=== PATIENT | female | born 1995 | race Caucasian/White ===

== ENCOUNTER → 2024-05-14 07:50 | Outpatient (BNVA) | payer MEDICARE, SELFPAY | PROVIDERS: Visit Provider Nurse Practitioner Women's Health | DX: Z34.90 Encounter for supervision of normal pregnancy, unspecified, unspecified trimester (principal); Z3A.00 Weeks of gestation of pregnancy not specified | CPT/HCPCS: 80307; 81025; 84439; 84443; 84481; 85025; 86592; 86762; 86803; 86850; 86900; 87086; 87340; 87491; 87591; 87806 ==

== ENCOUNTER 2024-11-07 00:37 | Inpatient (IN) | payer MEDICARE, SELFPAY ==
[2024-11-06 23:51] VITALS: BP 123/57; PULSE 94
[2024-11-07] VITALS (30 sets, daily range): BP systolic 80–132; BP diastolic 45–68; PULSE 69–115; RESP 16; TEMP 36.6–37.3; O2SAT 97–98; BMI 26.5
[2024-11-07 02:38] LABS: Basophils # 0.1 10^3/uL (0.0-0.1); Basophils % 0.3 %; Eosinophils % 0.1 %; Hematocrit 33.8 % (36-47); Lymphocytes # 2.8 10^3/uL (0.8-4.8); Lymphocytes % 17.6 %; Mean Corpuscular HGB Conc 34.9 g/dL (30-55); Mean Corpuscular Hemoglobin 31.6 pg (27-33); Mean Corpuscular Volume 90.4 fl (85-98); Mean Platelet Volume 9.8 fL (7.4-10.4); Monocytes # 1.1 10^3/uL (0.2-0.9); Monocytes % 6.8 %; Neutrophils # 11.68 10^3/uL (1.8-7.7); Neutrophils % 74.8 %; Nucleated Red Blood Cells % 0 %; Platelet Count 265 10^3/cmm (157-399); Red Blood Count 3.74 10^6/uL (3.85-5.65); Red Cell Distribution Width 12.7 % (12.1-15.1); White Blood Count 15.64 10^3/uL (3.29-11.43)
[2024-11-07 05:45] LABS: Amphetamines Screen Urine Negative (Negative); Barbiturates Screen Urine Negative (Negative); Benzodiazepines Screen Urine Negative (Negative); Cocaine Screen Urine Negative (Negative); Opiate Screen Urine Negative (Negative); PCP Screen Urine Negative (Negative); THC Screen Urine Positive (Negative)
--- NOTE | 2024-11-07 07:56 | P.HP_ITS ---
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 Patient had advanced dilation to 5 cm at presentation. The patient was amanda every 2 to 3 minutes. Patient believed she had leakage of fluid but tested negative for ruptured membranes. The patient had unremarkable care. Patient had delivered for 36 weeks with her previous deliveries and had no significant complications. 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 2 PFSH: Family History Grandmother Colon cancer Diabetes Hypertension Stroke Hyperlipidemia Grandfather Heart disease Denies family history of Ovarian cancer Prostate cancer Breast cancer Uterine cancer Thyroid disease Social History Smoking and tobacco/nicotine status: never used tobacco/nicotine History History History 2 5 Term 0 2 Miscarriages/Ectopic 2 Living Children 2 Vitals/I&O/Wt Last Vital Signs Pulse 83 11/07/24 06:29 BP 108/63 11/07/24 06:29 O2 Del Method Room Air 11/07/24 00:52 Weight last 48 hrs Weight 61.689 kg Physical Exam 2 Const: COMMON NORMALS: no acute distress and patient oriented x3 HENMT: COMMON NORMALS: normocephalic Resp: COMMON NORMALS: normal respiratory effort and No retractions Cardio: COMMON NORMALS: no JVD, regular rate and regular rhythm GI: OTHER: Gravid uterus Extremity: COMMON NORMALS: no clubbing, cyanosis or edema Neuro: COMMON NORMALS: moves all extremities Psych: COMMON NORMALS: mental status grossly normal Skin: COMMON NORMALS: no rashes or lesions noted Data 11/07/24 02:29 Results Labs OB ([facility]): 2 Blood Type O Positive 11/07/24 Antibody Screen Negative 11/07/24 Hct 33.8 % (36-47) L 11/07/24 Hgb 11.80 g/dL (11.27-16.99) 11/07/24 Rho(D) Type Rh positive 11/07/24 Plt Count 265 10^3/cmm (157-399) 11/07/24 Hep Bs Antigen Non-reactive (Nonreactive) 05/14/24 Hepatitis C Antibody Non-reactive (Nonreactive) 05/14/24 Rubella IgG Antibody 12.4 IU/mL (0.0-10.0) H 05/14/24 RPR Nonreactive (Nonreactive) 05/14/24 HIV 1&2 Ab & HIV 1 Ag Non-reactive (Non-Reactiv) 05/14/24 TSH 0.07 uIU/mL (0.27-4.20) L 05/14/24 Free T4 1.42 ng/dL (0.82-1.77) 05/14/24 C.trachomatis RNA (TMA) Not detected (NOT DETECTED) N.gonorrhoeae RNA (TMA) Not detected (NOT DETECTED) T. vaginalis Amp RNA Not detected (NOT DETECTED) 05/14/24 Chlamydia/GC Comment See note 05/14/24 Cystic Fibrosis Screen Negative 05/14/24 HCG, Qual Positive (Negative) H 05/14/24 Urine Opiates Screen Negative ng/mL (Negative) 11/07/24 Ur Barbiturates Screen Negative ng/mL (Negative) 11/07/24 Ur Phencyclidine Scrn Negative ng/mL (Negative) 11/07/24 Ur Amphetamines Screen Negative ng/mL (Negative) 11/07/24 U Benzodiazepines Scrn Negative ng/mL (Negative) 11/07/24 Urine Cocaine Screen Negative ng/mL (Negative) 11/07/24 U Marijuana (THC) Screen Positive ng/mL (Negative) H Micro Urine Specimen 05/14/24 A&P Assessment and plan (1) Multigravida in third trimester: (2) 36 weeks gestation of : The patient was admitted to given her advanced dilation and regular contractions. The patient had progressed to 6 cm overnight. Patient is wanting to pursue natural delivery without any medications or assistance. We will continue with routine labor management. Patient may consider rupture membranes. The patient is GBS unknown as the patient did not want to pursue this or antibiotics prior to delivery. PDMP PDMP Reviewed: Not Reviewed Attestations 2 Medical Necessity Statement*: Patient admitted for labor. Anticipate at least a 2 midnight stay. Coding Level of Care Code Acute Code for Chg Fwd Diagnoses Multigravida in third trimester Z34.83 36 weeks gestation of Z3A.36
--- NOTE | 2024-11-07 15:24 | PM.DELIVERY ---
Delivery Note: Date of delivery: November 07, 2024 Pre-delivery diagnoses: Late intrauterine Post-delivery diagnoses: Same, viable male Procedure: Spontaneous vaginal delivery Delivering Physician: Dr. Kelby Almendarez Pre-Delivery Course: This is a 29-year-old G5, P3 who presented at 36 weeks 1 day with active contractions. Delivery: Once patient was completed the patient was placed in the normal lithotomy position. The patient started pushing with contractions. The patient delivered the infant's head followed by shoulders and body without difficulty. The infant was placed on mother's abdomen and after appropriate delay the cord was clamped and cut. Placenta was delivered soon after without difficulty. Review of the perineum did not demonstrate any significant lacerations. Bleeding was controlled and uterus was firm. Post-Delivery Status: Stable History History History 5 Term 0 2 Miscarriages/Ectopic 2 Living Children 2 A&P Assessment and plan (1) Normal spontaneous vaginal delivery: Proceed with routine care PDMP PDMP Reviewed: Not Reviewed Coding Level of Care Code Acute Code for Chg Fwd Diagnoses Normal spontaneous vaginal delivery O80
--- NOTE | 2024-11-07 16:56 | PC.NURSE ---
11/07/24 at 1430, this nurse discussed with patient the policy of starting pitocin during period following delivery of placenta. This nurse educated patient on importance of pitocin in relation to decreasing bleeding and increasing uterine contractions during period. Patient declined use of pitocin, stated I will only accept it if I am hemorrhaging. Physician notified of this conversation and patient's wishes.
[2024-11-07 20:45] LABS: Chlamydia Trachomatis NOT DETECTED
[2024-11-08 01:15] VITALS: BP 106/64; PULSE 76; RESP 17; TEMP 36.9; O2SAT 97
[2024-11-08 03:51] LABS: Glucose Point of Care 67 mg/dL (70-110)
[2024-11-08 04:16] LABS: Neisseria Gonorrhea Negative
[2024-11-08 04:17] LABS: Mean Corpuscular HGB Conc 34.7 g/dL (30-55); Mean Corpuscular Hemoglobin 31.4 pg (27-33); Mean Corpuscular Volume 90.5 fl (85-98); Mean Platelet Volume 9.5 fL (7.4-10.4); Platelet Count 290 10^3/cmm (157-399); Red Blood Count 3.98 10^6/uL (3.85-5.65); Red Cell Distribution Width 12.8 % (12.1-15.1); White Blood Count 18.53 10^3/uL (3.29-11.43)
--- NOTE | 2024-11-08 04:33 | PC.NURSE ---
blood glucose taken at 0339 was [facility] blood sugar.
--- NOTE | 2024-11-08 07:11 | PC.NURSE ---
THis nurse entered room with Chantal Rivas, PEYMAN at this time. Pt asleep in bed with baby in her arms. This nurse woke pt and told her that if she is going to sleep the baby needs to be in the crib, it is the safest place for baby to be. This press writer araanged crib for mom to put baby in the crib. Pt stared at nurse and refused to place baby in crib.
[2024-11-08 10:50] VITALS: BP 109/71; PULSE 72; RESP 16; TEMP 36.7
--- NOTE | 2024-11-08 11:12 | PM.OBGYPN ---
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 Patient is not having any complications. Vital signs have been stable. The patient denies any acute concerns today. There were no nursing concerns. Labor: Station: +1 Amniotic Membrane Status: Ruptured Monitor Mode: Palpation Contraction Pattern: Regular Post /CS: Patient comments OB post-: no complaints and pain well controlled baby status: doing well and nursing well feeding status: exclusively breast feeding Vitals/I&O/Wt Last Vital Signs Temp 98.4 F 11/08/24 01:15 Pulse 76 11/08/24 01:15 Resp 17 11/08/24 01:15 BP 106/64 11/08/24 01:15 Pulse Ox 97 11/08/24 01:15 O2 Del Method Room Air 11/08/24 01:15 Weight last 48 hrs Weight 61.689 kg Physical Exam Const: COMMON NORMALS: no acute distress and patient oriented x3 HENMT: COMMON NORMALS: normocephalic HEAD & SCALP: normocephalic Neck/C-Spine: COMMON NORMALS: no JVD Resp: COMMON NORMALS: normal respiratory effort and No retractions Cardio: COMMON NORMALS: no JVD, regular rate and regular rhythm RATE: regular rate RHYTHM: regular rhythm GI: OTHER: Uterus firm and below umbilicus Extremity: COMMON NORMALS: no clubbing, cyanosis or edema Neuro: COMMON NORMALS: patient oriented x3 and moves all extremities Psych: COMMON NORMALS: mental status grossly normal Skin: COMMON NORMALS: no rashes or lesions noted GENERAL SKIN EXAM: no rashes or lesions noted Data 11/08/24 04:12 A&P Assessment and plan (1) Normal spontaneous vaginal delivery: (2) care following vaginal delivery: Continue with routine care. PDMP PDMP Reviewed: Not Reviewed Attestations Medical Necessity Statement*: Patient admitted for labor. Anticipate 2 midnight stay. Coding Level of Care Code Acute Code for Chg Fwd Diagnoses Normal spontaneous vaginal delivery O80 care following vaginal delivery Z39.2
[2024-11-08 16:00] VITALS: BP 108/68; PULSE 65; RESP 16; TEMP 36.8
[2024-11-08 21:29] VITALS: BP 106/61; PULSE 84; RESP 16; TEMP 36.8; O2SAT 98
[2024-11-09 05:00] VITALS: BP 124/80; PULSE 77; RESP 16; O2SAT 98
--- NOTE | 2024-11-09 09:32 | PM.OBGYDC ---
Discharge Providers [employer] Date of Admission: 11/07/24 00:37 Date of Discharge: 11/09/24 Attending Provider at Admission: Kelby Almendarez MD Attending Provider at Discharge: Kelby Almendarez MD Diagnoses at Discharge Discharge Diagnosis (1) Normal spontaneous vaginal delivery: Status: Acute (2) care following vaginal delivery: Status: Acute Reason for Visit Reason for Visit: possible srom, ctx Hospital Course Hospital Course This is a 29-year-old G5, P3 that presented with contractions. The patient was eventually dilated at 5 cm at presentation. Patient was monitored and she progressed slowly to completion. The patient was completely dilated the patient pushed with contractions to deliver a viable infant male vaginally without complication. care was unremarkable. Vital signs were stable. Information Peripartum Data: Infant Delivery Method: Vaginal Laceration description: None complications: none Physical Exam Const: COMMON NORMALS: no acute distress and patient oriented x3 HENMT: COMMON NORMALS: normocephalic HEAD & SCALP: normocephalic Neck/C-Spine: COMMON NORMALS: no JVD Resp: COMMON NORMALS: normal respiratory effort and No retractions Cardio: COMMON NORMALS: no JVD, regular rate and regular rhythm RATE: regular rate RHYTHM: regular rhythm GI: OTHER: Uterus firm and below umbilicus Extremity: COMMON NORMALS: no clubbing, cyanosis or edema Neuro: COMMON NORMALS: patient oriented x3 and moves all extremities Psych: COMMON NORMALS: mental status grossly normal Skin: COMMON NORMALS: no rashes or lesions noted GENERAL SKIN EXAM: no rashes or lesions noted History History History 5 Term 0 2 Miscarriages/Ectopic 2 Living Children 2 Discharge Data Studies Completed and Pending Laboratory Results WBC 18.53 10^3/uL (3.29-11.43) H 11/08/24 04:12 RBC 3.98 10^6/uL (3.85-5.65) 11/08/24 04:12 Hgb 12.50 g/dL (11.27-16.99) 11/08/24 04:12 Hct 36.0 % (36-47) 11/08/24 04:12 MCV 90.5 fl (85-98) 11/08/24 04:12 MCH 31.4 pg (27-33) 11/08/24 04:12 MCHC 34.7 g/dL (30-55) 11/08/24 04:12 RDW 12.8 % (12.1-15.1) 11/08/24 04:12 Plt Count 290 10^3/cmm (157-399) 11/08/24 04:12 MPV 9.5 fL (7.4-10.4) 11/08/24 04:12 Neut % (Auto) 74.8 % 11/07/24 02:29 Lymph % (Auto) 17.6 % 11/07/24 02:29 [place] % (Auto) 6.8 % 11/07/24 02:29 Eos % (Auto) 0.1 % 11/07/24 02:29 Baso % (Auto) 0.3 % 11/07/24 02:29 Neut # (Auto) 11.68 10^3/uL (1.8-7.7) H 11/07/24 02:29 Lymph # (Auto) 2.8 10^3/uL (0.8-4.8) 11/07/24 02:29 [place] # (Auto) 1.1 10^3/uL (0.2-0.9) H 11/07/24 02:29 Eos # (Auto) 0.0 10^3/uL (0.0-0.8) 11/07/24 02:29 Baso # (Auto) 0.1 10^3/uL (0.0-0.1) 11/07/24 02:29 Nucleated RBC % (auto) 0 % 11/07/24 02:29 Nucleated RBCs # 0.0 /100WBC 11/07/24 02:29 POC Glucose 67 mg/dL (70-110) L 11/08/24 03:49 Urine Opiates Screen Negative ng/mL (Negative) 11/07/24 05:30 Ur Barbiturates Screen Negative ng/mL (Negative) 11/07/24 05:30 Ur Phencyclidine Scrn Negative ng/mL (Negative) 11/07/24 05:30 Ur Amphetamines Screen Negative ng/mL (Negative) 11/07/24 05:30 U Benzodiazepines Scrn Negative ng/mL (Negative) 11/07/24 05:30 Urine Cocaine Screen Negative ng/mL (Negative) 11/07/24 05:30 U Marijuana (THC) Screen Positive ng/mL (Negative) H 11/07/24 05:30 C. trachomatis (PCR) Not detected 11/07/24 05:30 N. gonorrhoeae (PCR) Negative 11/07/24 05:30 Blood Type O Positive 11/07/24 02:29 Rho(D) Type Rh positive 11/07/24 02:29 Antibody Screen Negative 11/07/24 02:29 Vitals Last Vital Signs Temp 98.3 F 11/08/24 21:29 Pulse 77 11/09/24 05:00 Resp 16 11/09/24 05:00 BP 124/80 11/09/24 05:00 Pulse Ox 98 11/09/24 05:00 O2 Del Method Room Air 11/09/24 05:00 Results Labs OB ([facility]): Blood Type O Positive 11/07/24 Antibody Screen Negative 11/07/24 Hct 36.0 % (36-47) 11/08/24 Hgb 12.50 g/dL (11.27-16.99) 11/08/24 Rho(D) Type Rh positive 11/07/24 Plt Count 290 10^3/cmm (157-399) 11/08/24 Hep Bs Antigen Non-reactive (Nonreactive) 05/14/24 Hepatitis C Antibody Non-reactive (Nonreactive) 05/14/24 Rubella IgG Antibody 12.4 IU/mL (0.0-10.0) H 05/14/24 RPR Nonreactive (Nonreactive) 05/14/24 HIV 1&2 Ab & HIV 1 Ag Non-reactive (Non-Reactiv) 05/14/24 TSH 0.07 uIU/mL (0.27-4.20) L 05/14/24 Free T4 1.42 ng/dL (0.82-1.77) 05/14/24 C.trachomatis RNA (TMA) Not detected (NOT DETECTED) 05/14/24 N.gonorrhoeae RNA (TMA) Not detected (NOT DETECTED) 05/14/24 T. vaginalis Amp RNA Not detected (NOT DETECTED) 05/14/24 Chlamydia/GC Comment See note 05/14/24 Cystic Fibrosis Screen Negative 05/14/24 HCG, Qual Positive (Negative) H 05/14/24 Urine Opiates Screen Negative ng/mL (Negative) 11/07/24 Ur Barbiturates Screen Negative ng/mL (Negative) 11/07/24 Ur Phencyclidine Scrn Negative ng/mL (Negative) 11/07/24 Ur Amphetamines Screen Negative ng/mL (Negative) 11/07/24 U Benzodiazepines Scrn Negative ng/mL (Negative) 11/07/24 Urine Cocaine Screen Negative ng/mL (Negative) 11/07/24 U Marijuana (THC) Screen Positive ng/mL (Negative) H 11/07/24 Micro Urine Specimen 05/14/24 Discharge Plan Discharge Patient Disposition: Home Condition: Stable Prescriptions: Continued DHA 200 mg capsule PO DAILY melatonin 10 mg tablet,disintegrating 10 mg PO DAILY Discharge Orders: Discharge Order (Routine); Ordered 11/09/24 Ordered By: Kelby Almendarez Referrals: Kelby Almendarez MD [Physician] - 6 Weeks Discharge Diet: Usual diet Discharge Activity: Limit activity as instructed Patient Instructions: Depression (DC), Opioid Safety (DC), Preeclampsia and Eclampsia After Delivery (GEN), Hemorrhage (DC), OB Discharge Report, OB Food/Drug Interaction Guide, OB Care at Home, Opioid Safety, OB Vaginal Deliveries, Abnormal Bleeding Discharge Attestations STEAM [employer]OX HAND Time Spent in Discharge Care*: less than 30 min Coding Level of Care Code Acute Code for Chg Fwd Diagnoses Normal spontaneous vaginal delivery O80 care following vaginal delivery Z39.2
[2024-11-09 11:07] VITALS: BP 111/67; PULSE 73; RESP 16; TEMP 36.6
== END 2024-11-09 11:38 | disposition home or self-care (01) | DRG 807 ==
LOC: OPOB 00:37 → OBGYN 00:37
PROVIDERS: Admitting Provider Family Medicine; Visit Provider Family Medicine
DX: O60.14X0 Preterm labor third trimester with preterm delivery third trimester, not applicable or unspecified (principal); Z37.0 Single live birth; Z3A.36 36 weeks gestation of pregnancy
CPT/HCPCS: 36415; 36416; 59025; 59409; 80306; 82962; 83986; 85025; 85027; 86850; 86900; 87491; 87591; 99211